=== PATIENT | female | born 2000 | race Caucasian/White ===

== ENCOUNTER 2019-05-04 08:05 | Emergency (ER) | payer OTHER ==
--- NOTE | 2019-05-04 08:20 | ED Physician Documentation ---
PD HPI FEMALE - Stated complaint Stated Complaint: FEMALE - Chief complaint Chief Complaint: Abd Pain - History obtained from History obtained from: Patient - History of Present Illness Timing - onset: How many days ago (2) Timing - duration: Days (2) Timing - details: Abrupt onset, Still present (onset of vaginal bleeding, red without clots. Expected time for period, with last one a month ago and was normal. One prior to that was heavier and was shortly after IUD placed. She expected more normal menses this month again. Having bleeding of pad every few hours. Denies vaginal discharge.) Associated symptoms: Vaginal bleeding. No: Fever, Vaginal discharge, Genital sore/lesion Contributing factors: No: , Exposed to STD Similar symptoms before: Diagnosis (had heavier menses after IUD and went to PCP, and had IUD adjusted as it was slightly out of position.) Recently seen: Clinic (IUD placed 3 months ago) Review of Systems Constitutional: denies: Fever, Chills Nose: denies: Rhinorrhea / runny nose, Congestion Throat: denies: Sore throat Respiratory: denies: Cough GI: denies: Abdominal Pain, Nausea, Vomiting, Diarrhea : reports: Vaginal bleeding. 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 - Present Medications Home Medications: Ambulatory Orders Medication Instructions Recorded Confirmed Ibuprofen [Motrin] 600 mg PO TID PRN #25 tab 05/04/19 Norgestimate-Ethinyl Estradiol 1 each PO DAILY #1 packet 05/04/19 [Ortho Tri-Cyclen 28 Tablet] Venlafaxine HCl [Effexor Xr] 150 mg PO 05/04/19 hydrOXYzine HCL [Hydroxyzine HCl] 25 mg PO DAILY PM 05/04/19 05/04/19 - Allergies Allergies/Adverse Reactions: Allergies Allergy/AdvReac Type Severity Reaction Status Date / Time clindamycin Allergy Anaphylaxis Verified 05/04/19 08:17 PD ED PE NORMAL - Vitals Vital signs reviewed: Yes - General General: Alert and oriented X 3, No acute distress, Well developed/nourished - Neck Neck: Supple, no meningeal sign, No adenopathy - Cardiac Cardiac: RRR, No murmur - Respiratory Respiratory: Clear bilaterally - Abdomen Abdomen: Normal bowel sounds, Soft, Non distended, Other (some tender suprapubic and RLQ without guarding. ) - Female Female : Deferred - Back Back: No CVA TTP - Derm Derm: Normal color, Warm and dry Results - Vitals Vitals: Vital Signs - 24 hr 05/04/19 05/04/19 08:14 09:53 Temperature 37.0 C Heart Rate 90 77 Respiratory 18 18 Rate Blood Pressure 117/76 117/80 O2 Saturation 100 100 Oxygen O2 Source Room air - Labs Labs: Laboratory Tests 05/04/19 05/04/19 08:25 08:25 Urine Color YELLOW Urine Clarity HAZY Urine pH 6.0 Ur Specific [place] 1.025 1.025 Urine Protein NEGATIVE Urine Glucose (UA) NEGATIVE Urine Ketones NEGATIVE Urine Occult Blood LARGE H Urine Nitrite NEGATIVE Urine Bilirubin NEGATIVE Urine Urobilinogen 0.2 (NORMAL) Ur Leukocyte Esterase TRACE H Urine RBC 6-10 H Urine WBC 4-5 Ur Squamous Epith Cells MOD Squamous H Urine Bacteria Few Ur Microscopic Review INDICATED Urine Culture Comments NOT INDICATED Urine HCG, Qual NEGATIVE - Rads (name of study) pelvic U/S Radiology: Prelim report reviewed (no acute process. Normal ovaries. IUD in proper place. ), See rad report PD MEDICAL DECISION MAKING - ED course Complexity details: reviewed results, considered differential (anticipated time for her period but heavier. Might still be irritation from recent IUD (3 months ago). U/S without structural abnormality. ), d/w patient Departure - Departure Disposition: 01 Home, Self Care Clinical Impression: Dysfunctional uterine bleeding Condition: Stable Record reviewed to determine appropriate education?: Yes Instructions: ED Bleed Irregular Vaginal Follow-Up: MARY Jewell [Provider Group] Prescriptions: Ibuprofen [Motrin] 600 mg PO TID PRN #25 tab PRN Reason: Pain Norgestimate-Ethinyl Estradiol [Ortho Tri-Cyclen 28 Tablet] 1 each PO DAILY #1 packet Comments: Your ultrasound appeared normal with correct position of the IUD and no cysts or other structural problems. Your urine test was without any signs of infection. Your test is negative. This point I presume it still just some irritation from the recent IUD causing heavier periods. Use some anti-inflammatory such as ibuprofen 3 times a day for the next several days to week. You could add estrogen hormone to try to decrease the bleeding and shorten the.. Use the tablets from the beginning of the oral contraceptive packet, 2 tablets daily for 3 or 4 days. Recheck if not improved over the next several days or having worsening bleeding, fevers, discharge, other concerns. Forms: Activity restrictions Discharge Date/Time: 05/04/19 10:29
[2019-05-04] MEDS ORDERED: IBUPROFEN 600 MG TABLET PO STA (08:35)
[2019-05-04 08:36] LABS: BILIRUBIN,URINE NEGATIVE (NEGATIVE); GLUCOSE, URINE (UA) NEGATIVE (NEGATIVE); KETONES,URINE (UA) NEGATIVE (NEGATIVE); LEUKOCYTE ESTERASE, URINE TRACE (NEGATIVE); NITRITE,URINE NEGATIVE (NEGATIVE); OCCULT BLOOD,URINE LARGE (NEGATIVE); PROTEIN,URINE NEGATIVE (NEGATIVE); UROBILINOGEN,URINE 0.2 (NORMAL) E.U./dL (NORMAL)
[2019-05-04 08:38] LABS: HCG UR QUAL NEGATIVE
[2019-05-04 08:39] LABS: CLARITY,URINE HAZY (CLEAR)
[2019-05-04 08:42] LABS: BACTERIA,URINE Few /HPF (None Seen); SQUAMOUS EPITHELIAL CELL,UR MOD Squamous (<= Few)
[2019-05-04 09:54] VITALS: BP 117/80
--- NOTE | 2019-05-04 10:00 | Ultrasound Report ---
Reason: pelvic pain; heavy bleeding; IUD 3 months ago Procedure Date: 05/04/2019 Accession Number: [id number] / [id number] Procedure: US - Pelvic w/Transvag+Doppler Ltd CPT Code: Final Report FULL RESULT: EXAM: PELVIC ULTRASOUND WITH DOPPLERS CLINICAL HISTORY: Pelvic pain; heavy bleeding; IUD 3 months ago. COMPARISON: None. TECHNIQUE: Realtime transabdominal imaging performed to identify the uterus and adnexa and as an overview of other pelvic structures, followed by transvaginal imaging for better assessment of the endometrium and adnexa, with static image documentation. Color flow imaging and Doppler spectral analysis was performed to evaluate blood flow to the ovaries given pelvic pain and clinical concern for ovarian torsion. FINDINGS: Uterus: 9.6 x 3.8 x 6 cm, volume 114 cc. Anteverted position. Normal overall size and echotexture. Masses: None. Endometrium: 4 mm. Normal. Cervix: Unremarkable. Right Ovary: 3.2 x 2.1 x 2.2 cm, volume 7.6 cc. Normal echotexture. Arterial and venous blood flow are present. PSV 8.5 cm/sec. RI 0.6. Adnexa are unremarkable. Left Ovary: 3.9 x 2.1 x 2.3 cm, volume 8.7 cc. Normal echotexture. Arterial and venous blood flow are present. PSV 13.3 cm/sec. RI 0.4. Adnexa are unremarkable. Free Fluid: Trace. Other: None. IMPRESSION: 1. Normal pelvic ultrasound. 2. Arterial and venous blood flow are present to the ovaries bilaterally. 3. Normal IUD position within the uterus. [facility]
== END 2019-05-04 10:29 | disposition home or self-care (01) ==
LOC: ED 08:05
DX: N93.8 Other specified abnormal uterine and vaginal bleeding (principal); R10.31 Right lower quadrant pain; Z97.5 Presence of (intrauterine) contraceptive device
CPT/HCPCS: 76830; 76856; 81001; 81025; 93976; 99284; A9270; 81003; 87086